=== PATIENT | female | born 1945 | race African-American/Black ===

== ENCOUNTER 2021-06-15 05:05 | Inpatient (IN) | payer MEDICARE ==
[~2021-06-15] VITALS: Ht 165.1 cm; Wt 73.5 kg
[2021-06-15 06:02] LABS: HEMATOCRIT. 31.2 % (36.0-48.0); HEMOGLOBIN. 10.6 g/dL (12.0-16.0); MEAN CORPUSCULAR HEMOGLOBIN 26.1 pg (28.0-32.0); MEAN CORPUSCULAR VOLUME 76.4 fL (81.0-99.0); MONOCYTES % 6.7 % (2.0-8.0); NEUTROPHILS % 62.3 % (40.0-76.0); RED BLOOD CELL COUNT 4.08 mill/uL (4.2-5.4); RED CELL DISTRIBUTION WIDTH 14.8 % (11.6-14.6)
[2021-06-15 06:12] LABS: INR 1.1; PROTHROMBIN TIME 12.1 sec (9.6-11.0)
[2021-06-15 06:21] LABS: CHLORIDE 114 mEq/L (98-107)
[2021-06-15] MEDS ORDERED: ASPIRIN 325MG EC TABLET PO ONE (07:00)
[2021-06-15] MEDS ORDERED: ONDANSETRON HCL 4MG/2ML INJ IV PRN (12:15)
[2021-06-15] MEDS: ENOXAPARIN 30MG/0.3ML SYR SUBCUT SCH (14:07)
[2021-06-15 14:11] LABS: CLARITY URINE CLEAR (CLEAR); COLOR URINE YELLOW (YELLOW); KETONES URINE NEGATIVE (NEGATIVE); LEUKOCYTE ESTERASE URINE NEGATIVE (NEGATIVE); NITRITE URINE NEGATIVE (NEGATIVE); OCCULT BLOOD URINE NEGATIVE (NEGATIVE); PROTEIN URINE NEGATIVE (NEGATIVE); SPECIFIC GRAVITY URINE 1.022 (1.005-1.030); UROBILINOGEN URINE 0.2 E.U./dL (0.2-1.0)
[2021-06-15 16:00] VITALS: BP 142/90
[2021-06-15 17:25] VITALS: BP 142/90
[2021-06-15] MEDS: TRAMADOL 50MG TABLET PO PRN (18:08)
[2021-06-15 20:00] VITALS: BP 157/88
[2021-06-15] MEDS: ATORVASTATIN CALCIUM 20MG TABLET PO SCH (21:51)
[2021-06-16] VITALS (9 sets, daily range): BP systolic 124–184; BP diastolic 61–84
[2021-06-16 07:00] LABS: BASOPHILS % 0.8 % (0.0-2.0); EOSINOPHILS % 3.9 % (0.0-5.0); HEMATOCRIT. 35.8 % (36.0-48.0); HEMOGLOBIN. 11.8 g/dL (12.0-16.0); LYMPHOCYTES % 24.8 % (20.0-50.0); MEAN CORPUSCULAR HEMOGLOBIN 25.9 pg (28.0-32.0); MEAN CORPUSCULAR VOLUME 78.8 fL (81.0-99.0); MEAN PLATELET VOLUME 9.9 fl (7.4-10.4); MONOCYTES % 7.7 % (2.0-8.0); NEUTROPHILS % 62.8 % (40.0-76.0); PLATELET 144 x1000/uL (130-400); RED BLOOD CELL COUNT 4.54 mill/uL (4.2-5.4); RED CELL DISTRIBUTION WIDTH 14.8 % (11.6-14.6)
[2021-06-16 07:17] LABS: CHLORIDE 109 mEq/L (98-107)
[2021-06-16] MEDS: ASPIRIN 81MG TABLET PO SCH (08:55)
[2021-06-16] MEDS: FUROSEMIDE 20MG TABLET PO SCH (10:44)
[2021-06-16] MEDS ORDERED: HYDRALAZINE 20MG/ML VIAL IV PRN (11:00)
[2021-06-16] MEDS: HYDRALAZINE HCL 50MG TABLET PO SCH ×2 (11:06→20:48)
[2021-06-16] MEDS: ENOXAPARIN 30MG/0.3ML SYR SUBCUT SCH (11:07)
[2021-06-16] MEDS ORDERED: HYDRALAZINE HCL 50MG TABLET PO SCH (14:00)
[2021-06-16] MEDS: LORAZEPAM 2MG/ML CPJ IV PRN ×2 (16:10→23:00)
[2021-06-16] MEDS: ATORVASTATIN CALCIUM 20MG TABLET PO SCH (20:46)
[2021-06-17 04:00] VITALS: BP 133/90
[2021-06-17] MEDS: HYDRALAZINE HCL 50MG TABLET PO SCH ×3 (05:38→21:31)
[2021-06-17 08:00] VITALS: BP 112/57
[2021-06-17] MEDS: ASPIRIN 81MG TABLET PO SCH (10:40)
[2021-06-17] MEDS: FUROSEMIDE 20MG TABLET PO SCH (10:40)
[2021-06-17 12:00] VITALS: BP 127/56
[2021-06-17] MEDS: ENOXAPARIN 40MG/0.4ML SYR SUBCUT SCH (14:27)
[2021-06-17 16:00] VITALS: BP 150/69
[2021-06-17 20:00] VITALS: BP_SYST 137; BP_SYST 140; BP_SYST 145; BP_DIAS 61; BP_DIAS 69
[2021-06-17] MEDS: ATORVASTATIN CALCIUM 20MG TABLET PO SCH (21:31)
[2021-06-18] VITALS (7 sets, daily range): BP systolic 117–144; BP diastolic 52–88
[2021-06-18] MEDS: HYDRALAZINE HCL 50MG TABLET PO SCH ×3 (05:27→22:00)
[2021-06-18] MEDS: FUROSEMIDE 20MG TABLET PO SCH (08:50)
[2021-06-18] MEDS: ASPIRIN 81MG TABLET PO SCH (08:50)
[2021-06-18] MEDS: ENOXAPARIN 40MG/0.4ML SYR SUBCUT SCH (12:44)
[2021-06-18] MEDS: ATORVASTATIN CALCIUM 20MG TABLET PO SCH (21:00)
[2021-06-19] VITALS (8 sets, daily range): BP systolic 117–133; BP diastolic 58–88
[2021-06-19] MEDS: HYDRALAZINE HCL 50MG TABLET PO SCH ×3 (05:20→21:12)
[2021-06-19] MEDS: ASPIRIN 81MG TABLET PO SCH (13:18)
[2021-06-19] MEDS: FUROSEMIDE 20MG TABLET PO SCH (13:19)
[2021-06-19] MEDS: ENOXAPARIN 40MG/0.4ML SYR SUBCUT SCH (14:05)
[2021-06-19] MEDS: ATORVASTATIN CALCIUM 20MG TABLET PO SCH (20:52)
[2021-06-19] MEDS: TRAMADOL 50MG TABLET PO PRN (20:53)
[2021-06-20] VITALS: BP 121/73
[2021-06-20 04:00] VITALS: BP 122/59
[2021-06-20 05:24] VITALS: BP 122/59
[2021-06-20] MEDS: HYDRALAZINE HCL 50MG TABLET PO SCH (05:41)
[2021-06-20 08:00] VITALS: BP 158/68
[2021-06-20] MEDS: FUROSEMIDE 20MG TABLET PO SCH (08:25)
[2021-06-20] MEDS: ASPIRIN 81MG TABLET PO SCH (08:25)
== END 2021-06-20 15:10 | DRG 64 ==
LOC: ER 05:05 → 8WST 09:37 → EDBEDREQSVC 09:40 → EDBEDREQ 09:40 → EDBEDREQTM 09:40 → ENRESERV 11:55 → 8WST 06-18 17:52
PROVIDERS: ADMIT Internal Medicine; ATTEND Internal Medicine
DX: I63.9 Cerebral infarction, unspecified (principal); N17.0 Acute kidney failure with tubular necrosis; G90.8 Other disorders of autonomic nervous system; D64.9 Anemia, unspecified; E11.40 Type 2 diabetes mellitus with diabetic neuropathy, unspecified; E78.5 Hyperlipidemia, unspecified; E87.8 Other disorders of electrolyte and fluid balance, not elsewhere classified; G89.29 Other chronic pain; I16.0 Hypertensive urgency; M35.3 Polymyalgia rheumatica; Z20.822 Contact with and (suspected) exposure to COVID-19; M54.59 Other low back pain; R07.89 Other chest pain; E86.0 Dehydration; M13.0 Polyarthritis, unspecified; R26.9 Unspecified abnormalities of gait and mobility; R60.0 Localized edema; G31.9 Degenerative disease of nervous system, unspecified; N18.9 Chronic kidney disease, unspecified; E11.22 Type 2 diabetes mellitus with diabetic chronic kidney disease; Z87.891 Personal history of nicotine dependence; Z79.899 Other long term (current) drug therapy; Z79.82 Long term (current) use of aspirin; Z88.8 Allergy status to other drugs, medicaments and biological substances; I12.9 Hypertensive chronic kidney disease with stage 1 through stage 4 chronic kidney disease, or unspecified chronic kidney disease; Z60.2 Problems related to living alone
CPT/HCPCS: 36415; 70496; 70551; 71045; 80053; 80061; 81003; 83036; 83605; 83735; 83880; 84145; 84443; 84484; 85025; 87426; 92610; 93005; 93306; 93880; 93970; 97161; 97166; 99291; J0360; J1650; J2060